=== PATIENT | male | born 1955 | race Caucasian/White ===

== ENCOUNTER → 2021-12-27 14:23 | Outpatient (CLI) | payer OTHER, SELFPAY ==
[2021-12-27 16:15] LABS: TSH w/ Reflex to FT4 2.74 uIU/mL (0.47-4.68)
== END ==
PROVIDERS: PCP Registered Nurse; Referring Provider Internal Medicine Cardiovascular Disease; Visit Provider Internal Medicine Cardiovascular Disease
DX: R00.2 Palpitations (principal)
CPT/HCPCS: 36415; 84443